=== PATIENT | female | born 1990 | race Asian ===

== ENCOUNTER 2018-06-28 00:20 | Emergency (ER) | payer BC, OTHER ==
[2018-06-28] MEDS ORDERED: LIDOCAINE 1% 50 ML ONE (01:25)
== END 2018-06-28 01:45 | disposition home or self-care (01) ==
LOC: MED 00:20
DX: S01.111A Laceration without foreign body of right eyelid and periocular area, initial encounter (principal); W22.03XA Walked into furniture, initial encounter; Y93.89 Activity, other specified; Y92.89 Other specified places as the place of occurrence of the external cause; Y99.8 Other external cause status
CPT/HCPCS: 12011; 99283; J2001